=== PATIENT | male | born 1955 | race Caucasian/White ===

== ENCOUNTER 2023-02-15 09:14 | Outpatient (CLI) | payer MEDICARE, BC, SELFPAY ==
[2023-02-15 16:59] LABS: Alanine Aminotransferase 47 U/L (6-50); Albumin Level 4.4 g/dL (3.5-5.1); Alkaline Phosphatase 60 U/L (38-126); Anion Gap 8 mmol/L (8-16); Aspartate Amino Transferase 47 U/L (17-59); Blood Urea Nitrogen 18 mg/dL (9-20); Calcium 9.5 mg/dL (8.4-10.2); Carbon Dioxide 27 mmol/L (22-30); Chloride 106 mmol/L (98-107); Cholesterol 190 mg/dL (0-200); Estimated Glomerular Filt Rate > 60; Glucose 115 mg/dL (65-110); HDL Direct 29 mg/dL; Potassium 4.8 mmol/L (3.4-5.0); Sodium 141 mmol/L (137-145); Triglycerides 163 mg/dL (<150)
[2023-02-15 17:11] LABS: LDL Cholesterol Direct 108 mg/dL
[2023-02-15 17:42] LABS: Prostate Specific Antigen 2.2 ng/mL (< OR = 4.0)
== END 2023-02-15 09:15 | disposition home or self-care (01) ==
PROVIDERS: PCP Emergency Medicine; Visit Provider Emergency Medicine
DX: Z12.5 Encounter for screening for malignant neoplasm of prostate (principal); E78.2 Mixed hyperlipidemia; I10 Essential (primary) hypertension; I25.10 Atherosclerotic heart disease of native coronary artery without angina pectoris; J84.10 Pulmonary fibrosis, unspecified; M33.90 Dermatopolymyositis, unspecified, organ involvement unspecified; M33.91 Dermatopolymyositis, unspecified with respiratory involvement; R73.03 Prediabetes; R94.6 Abnormal results of thyroid function studies
CPT/HCPCS: 36415; 80053; 80061; 83036; 84153; 84443; G0103

== ENCOUNTER 2023-03-28 12:31 | Outpatient (CLI) | payer MEDICARE, BC, SELFPAY ==
--- NOTE | ~2023-03-28 | CT_ITS ---
EXAMINATION:CT diagnostic chest wo con DATE: 03/28/2023 14:48 INDICATION: Dermatopolymyositis. TECHNIQUE: Computed tomography (CT) of the chest was performed without intravenous contrast. Automate d exposure control and iterative reconstruction technique were employed. The dose-length product (DLP ) was 177.90 mGy-cm. COMPARISON: None. FINDINGS: There is moderate emphysema. There is peripheral septal thickening in the lungs with a lowe r lung predominance. There is bronchiectasis in the inferior lungs. There are areas of honeycombing i n the lungs. No pleural effusion. The heart size is normal. There are coronary artery calcifications. No pericardial effusion. There is mild mediastinal lymphadenopathy, likely reactive. There is mild t horacic spondylosis. There is mild chronic anterior wedging of T4-T7 vertebral bodies. IMPRESSION: 1. Diffuse lung disease, likely a combination of moderate emphysema and chronic interstitial lung dis ease in a pattern of usual interstitial pneumonia (UIP). 2. Mild mediastinal lymphadenopathy, likely reactive. Reviewed, dictated and finalized at location E. IMPRESSION: 1. Diffuse lung disease, likely a combination of moderate emphysema and chronic interstitial lung disease in a pattern of usual interstitial pneumonia (UIP). 2. Mild mediastinal lymphadenopathy, likely reactive.
[2023-03-28 13:10] VITALS: PULSE 64; O2SAT 95
[2023-03-28 13:15] VITALS: PULSE 81; O2SAT 86
[2023-03-28 13:18] LABS: Alveolar/Arterial O2 Gradient 37.3 mmHg; Carboxyhemoglobin 0.2 % THb (0-2.0); Fractional Inspired Oxygen 21 %; Methemoglobin ABG 0.3 %THb (0-1.5); Oxygen Content ABG 20.6 %vol (16.0-22.0); Oxygen Saturation ABG 95.6 % (95.0-100.0); PCO2 ABG 31.5 mmHg (35.0-45.0); PO2 ABG 74.7 mmHg (80.0-100.0); PO2 FiO2 Ratio Arterial Blood 3.56 %; Reduced Hemoglobin 5.5 %THb (0-5.0); Total Hemoglobin 15.6 g/dL (12.0-18.0); pH ABG 7.441 (7.350-7.450)
[2023-03-28 13:20] VITALS: PULSE 82; O2SAT 88
[2023-03-28 13:21] LABS: Device ROOM AIR; Modified Allen's Test Pass
[2023-03-28 13:25] VITALS: PULSE 83; O2SAT 91
[2023-03-28 13:40] VITALS: PULSE 66; O2SAT 95
--- NOTE | 2023-03-28 13:51 | HOMEO2EVAL ---
Evaluation was performed at [facility] Home Oxygen Evaluation RC: Home Oxygen (O2) Evaluation Start: 03/28/23 13:48 Freq: Status: Active Protocol: RPE Activity Type Activity Date Activity User E-sign Co-sign Detail Recorded Client Recorded Date Recorded By Document 03/28/23 13:10 [email or web address] [email or web address] 03/28/23 13:51 DJO Document 03/28/23 13:15 [email or web address] [email or web address] 03/28/23 13:51 DJO Document 03/28/23 13:20 [email or web address] [email or web address] 03/28/23 13:51 DJO Document 03/28/23 13:25 [email or web address] [email or web address] 03/28/23 13:51 DJO Document 03/28/23 13:40 [email or web address] [email or web address] 03/28/23 13:51 DJO 03/28/23 03/28/23 03/28/23 13:10 13:15 13:20 Home O2 Evaluation [Oxygen] -Test Phase Resting Exercise Exercise -Oxygen Delivery Room Air Room Air Nasal Cannula -Oxygen Flow Rate (L/min) 1 [Pulse Oximetry] -Pulse Oximetry (90-100 %) 95 86 L 88 L [Pulse Rate] -Pulse Rate (60-100 beats/min) 64 81 82 [Evaluation] -Activity Tolerance [Exercise] -Ambulation Distance (feet) -Ambulation Distance (meters) [Charges] -Treatment Charges O2 Evaluation - Outpatient 03/28/23 03/28/23 13:25 13:40 Home O2 Evaluation [Oxygen] -Test Phase Exercise Resting -Oxygen Delivery Nasal Cannula Room Air -Oxygen Flow Rate (L/min) 2 [Pulse Oximetry] -Pulse Oximetry (90-100 %) 91 95 [Pulse Rate] -Pulse Rate (60-100 beats/min) 83 66 [Evaluation] -Activity Tolerance Good [Exercise] -Ambulation Distance (feet) 1,200 -Ambulation Distance (meters) 365.74 [Charges] -Treatment Charges
--- NOTE | 2023-03-28 16:47 | P.PCNPFT_ITS ---
PFT Procedure Performed PFT Procedure Performed Spirometry with Pre/Post Bronchodilator Plethysmography (Lung Vol) Diffusing Cap (DLCO) Flow Vol Loop PFT Interpretation This is a pulmonary function test with pre and post-bronchodilator spirometry, plethysmography, diffusing capacity, and maximal inspiratory and expiratory pressures. The test was performed and results interpreted in accordance with the 2019 and 2005 ATS/ERS Task Force guidelines respectively using the Global Lung Function Initiative-2012 reference equations. Patient demonstrated good effort and cooperation. Reproducibility criteria were met. The quality of the pre bronchodilator spirometry maneuver was Grade A and post bronchodilator spirometry maneuver was Grade A. Findings: Spirometry: There is decreased maximal expiratory airflow at all lung volumes with concave expiratory flow tracing. The contour the inspiratory flow tracing is normal. The pre bronchodilator FVC is 4.60 L, 111% predicted. The pre bronchodilator FEV1 is 3.00 L, 95% predicted. The pre bronchodilator FEV1: FVC ratio 65%. The post bronchodilator FVC is 4.54 L, representing 1% decrease. The post bronchodilator FEV1 is 3.03 L, representing 1% increase. The post bronchodilator FEV1: FVC ratio 67%. Plethysmography: The total lung capacity is 6.07 L, 89% predicted. The functional residual capacity is 2.92 L, 81% predicted. The residual volume is 1.48 L, 62% predicted. Diffusing capacity: The diffusing capacity unadjusted for hemoglobin and carboxyhemoglobin is 9.1, 35% predicted. The diffusing capacity adjusted for alveolar volume is 1.79, 45% predicted. Respiratory muscle force: The maximal inspiratory pressure is 73 cm H2O, 69% predicted. The maximal expiratory pressure is 127 cm H2O, 64% predicted In comparison to prior pulmonary function testing from 08/16/2021 from [facility] were only pre bronchodilator spirometry was performed, the pre bronchodilator FVC is unchanged from 4.71 to 4.60. The pre bronchodilator FEV1 is unchanged from 3.32 L to 3.00 L. The total lung capacity is unchanged from 6.03 L to 6.07 L. The functional residual capacity is decreased from 3.53 L to 2.92 L. The residual volume is increased from 1.17 L to 1.48 L. The diffusing capacity unadjusted for hemoglobin and carboxyhemoglobin is unchanged from 9.70 to 9.10. The diffusing capacity adjusted for alveolar volume is unchanged from 1.69 to 1.79. Impression: The spirometry is normal without evidence of an obstructive ab normality. There is no significant improvement after inhaling a single dose of albuterol. The total lung capacity and functional residual capacity are normal with a decreased residual volume. This is an abnormal but nonspecific lung volume pattern. The diffusing capacity unadjusted for hemoglobin and carboxyhemoglobin is severely decreased and remains moderately decreased when adjusted for alveolar volume. The maximal inspiratory pressure is normal and the maximal expiratory pressure is below the lower limit of normal which is defined as the 5th percentile of predicted suggesting the presence of expiratory respiratory muscle weakness. Clinical correlation is recommended. In comparison to prior pulmonary function testing on 08/16/2021 there has been a greater than anticipated time dependent decrease in the functional residual capacity and a greater than and to sip aided time dependent increase in the residual volume with no significant change in the FVC, FEV1, total lung capacity or diffusing capacity. Clinical correlation is recommended.
== END 2023-03-28 12:32 | disposition home or self-care (01) ==
LOC: ANHPFT 12:32
PROVIDERS: PCP Emergency Medicine; Visit Provider Internal Medicine Pulmonary Disease
DX: M33.91 Dermatopolymyositis, unspecified with respiratory involvement (principal)
CPT/HCPCS: 36600; 71250; 82375; 82805; 83050; 94060; 94200; 94618; 94726; 94729

== ENCOUNTER 2023-04-04 13:07 | Outpatient (CLI) | payer MEDICARE, BC, SELFPAY ==
[2023-04-04 15:16] LABS: Influenza A QL RT-PCR Negative (Negative); Influenza B QL RT-PCR Negative (Negative); SARS-CoV-2 RNA PCR Negative (Negative)
== END 2023-04-04 13:08 | disposition home or self-care (01) ==
LOC: ANHLAB 13:09
PROVIDERS: PCP Emergency Medicine; Visit Provider Nurse Practitioner Family
DX: R50.9 Fever, unspecified (principal); R05.9 Cough, unspecified; Z20.822 Contact with and (suspected) exposure to COVID-19
CPT/HCPCS: 87636

== ENCOUNTER 2023-05-29 08:11 | Outpatient (CLI) | payer MEDICARE, BC, SELFPAY ==
--- NOTE | 2023-06-23 15:20 | WPDSLEEPSTUD ---
Sleep Study Date of Study: 05/29/23 Ordering Provider: Byron Ash MD Interpreting Physician: Jovita Gtz MD Sleep Study Type: Split Polysomnogram Height: 1.75 m Weight: 76.204 kg Body Mass Index: 24.7 Neck Circumference (inches): 17 [place]: 5 Reason for Sleep Study Nocturnal hypoxemia, overnight oximetry 03/18/2023 on room air patient spent 1 hour 28 minute below 88% saturation. He is on O2 at 2 L/minute with sleep. He has interstitial lung disease with a UIP pattern associated with dermatomyositis with lung involvement. Sleep History Savage Mcgowan is a 67-year-old man with nocturnal hypoxemia currently using oxygen 2 L with sleep. He never awakens from sleep feeling short of breath. He never wakes at night with heartburn, belching or coughing.??He frequently snores, and occasionally snores loudly enough that others complain. He never has trouble sleeping when he has a cold. He never wakes up gasping for breath during the night. He occasionally has breathing problems at night. He never sweats excessively at night. He never notices his heart pounding or beating irregularly during the night. He occasionally falls asleep during the day. He rarely falls asleep involuntarily, rarely falls asleep while driving. He never experiences loss of muscle tone with strong emotion. He never has daytime difficulty at work due to excessive sleepiness. He never feels paralyzed on waking or falling asleep. He never experiences vivid dreams upon waking or falling asleep. He never feels afraid of going to sleep. He never has nightmares. He occasionally recalls his dreams. He never has thoughts racing through his mind. He never feels sad or depressed. He never feels anxiety. He rarely notices parts of his body jerk. He rarely kicks during the night. He never feels crawling or aching feelings in his legs. He never feels leg pain at night. He never has morning jaw pain, never grinds his teeth at night. He never feels bothered by pain during the day, never awakened by pain during the night. He occasionally wakes up feeling stiff in the morning, and he rarely wakes feeling sore or achy. He never awakens with pain in his neck, spine, or joints. Normal bedtime is, falling asleep 10:30 p.m. falling asleep within 15 minutes, waking typically 1 time at night to feed his dogs and place games on his telephone. He stays awaken hour, returns to sleep and wakes at 4:00 a.m.. He keeps the same schedule on weekends. He estimates getting 8-1/2 hours of sleep at night although 10 30 p.m. to 4:00 a.m. is only 5-1/2 hours. He takes naps in the afternoon or evening. A short nap lasting 10-15 minutes may be refreshing. Most of the time he feels adequate on waking. He feels better in the morning compared to other times of day. Habits:??Tobacco: Quit 30 years ago Caffeine: 1 serving per day. Alcohol: none Recreational substances: none [facility] Past Medical History Medical History (Updated 06/23/23 @ 15:48 by Jovita Gtz MD) Barretts esophagus Chronic gastritis Coronary artery disease S/p stent placement 2012 Dermatomyositis affecting respiratory system Hx of colonic polyps Hypertension Mixed hyperlipidemia Family History Family History Father Alcohol abuse Mother Alcohol abuse Hypertension Social History Social History Smoking status: Never smoker Second hand tobacco smoke exposure: No Alcohol intake: never Substance use: never Substance use type: does not use Lack of Transportation: No Lack of Food: Never True Current Housing: I Have Housing Concerned About Future Housing: No Difficulty Paying Gas/Electric Bills: No Difficulty Paying for Meds: No Currently Unemployed: No Education: Master's Degree or Higher Difficulty w/ Childcare or Family Care: No Living arrangements: alone Occupation
[2023-06-23 15:34] VITALS: BMI 24.7
== END 2023-05-30 07:30 | disposition home or self-care (01) ==
PROVIDERS: PCP Emergency Medicine; Visit Provider Internal Medicine Pulmonary Disease
DX: G47.33 Obstructive sleep apnea (adult) (pediatric) (principal); G47.61 Periodic limb movement disorder
CPT/HCPCS: 95811

== ENCOUNTER 2023-07-08 14:04 | Outpatient (CLI) | payer MEDICARE, BC, SELFPAY ==
[2023-07-08 19:46] LABS: Iron 76 ug/dL (49-181)
[2023-07-08 19:59] LABS: Percent Iron Saturation 20 % (20-50)
== END 2023-07-08 14:05 | disposition home or self-care (01) ==
LOC: ANHGOSHLAB 14:06
PROVIDERS: PCP Emergency Medicine; Visit Provider Internal Medicine Pulmonary Disease
DX: K29.50 Unspecified chronic gastritis without bleeding (principal)
CPT/HCPCS: 36415; 82728; 83540; 83550

== ENCOUNTER 2024-03-27 08:15 | Outpatient (CLI) | payer MEDICARE, BC, SELFPAY ==
[2024-03-27 14:24] LABS: Hematocrit 47.3 % (42.0-52.0); Hemoglobin 15.3 g/dL (14.0-18.0); Mean Corpuscular HGB Conc 32.3 g/dl (32-36); Mean Corpuscular Hemoglobin 30.3 pg (26-34); Mean Corpuscular Volume 93.7 fl (80-100); Mean Platelet Volume 11.4 fl (7.4-10.4); Platelet Count Result 254 k/mm3 (150-375); Red Blood Count 5.05 M/mm3 (4.6-6.20); Red Cell Distribution Width 14.2 % (11.5-14.5); White Blood Count 10.3 K/mm3 (4.5-10.0)
[2024-03-27 14:49] LABS: Alanine Aminotransferase 31 U/L (6-50); Albumin Level 4.3 g/dL (3.5-5.1); Alkaline Phosphatase 63 U/L (38-126); Anion Gap 12 mmol/L (4-12); Aspartate Amino Transferase 47 U/L (17-59); Bilirubin,Total 0.6 mg/dL (0.2-1.3); Blood Urea Nitrogen 19 mg/dL (9-20); Calcium 9.4 mg/dL (8.4-10.2); Carbon Dioxide 25 mmol/L (22-30); Chloride 102 mmol/L (98-107); Cholesterol 177 mg/dL (0-200); Estimated Glomerular Filt Rate > 60; Glucose 108 mg/dL (65-110); HDL Direct 37 mg/dL; Magnesium 2.2 mg/dL (1.6-2.3); Potassium 4.4 mmol/L (3.4-5.0); Sodium 139 mmol/L (137-145); Triglycerides 207 mg/dL (<150)
[2024-03-27 15:09] LABS: LDL Cholesterol Direct 100 mg/dL
[2024-03-27 15:28] LABS: Prostate Specific Antigen 2.4 ng/mL (< OR = 4.0)
[2024-03-27 16:04] LABS: Folic Acid 6.3 ng/mL (2.76->20)
[2024-03-27 16:24] LABS: Hemoglobin A1C 6.2 % (<5.7)
== END 2024-03-27 08:16 | disposition home or self-care (01) ==
LOC: ANHGOSHLAB 08:18
PROVIDERS: PCP Nurse Practitioner Family; Visit Provider Nurse Practitioner Family
DX: Z12.5 Encounter for screening for malignant neoplasm of prostate (principal); E61.1 Iron deficiency; E78.2 Mixed hyperlipidemia; G47.33 Obstructive sleep apnea (adult) (pediatric); I10 Essential (primary) hypertension; I25.10 Atherosclerotic heart disease of native coronary artery without angina pectoris; J84.9 Interstitial pulmonary disease, unspecified; K22.70 Barrett's esophagus without dysplasia; K29.50 Unspecified chronic gastritis without bleeding; M33.91 Dermatopolymyositis, unspecified with respiratory involvement; R73.03 Prediabetes; Z79.899 Other long term (current) drug therapy; Z86.0100 Personal history of colon polyps, unspecified; Z76.89 Persons encountering health services in other specified circumstances
CPT/HCPCS: 36415; 80053; 80061; 82607; 82728; 82746; 83036; 83735; 84153; 85027; G0103

== ENCOUNTER 2024-05-04 09:08 | Outpatient (CLI) | payer MEDICARE, BC, SELFPAY | END 2024-05-04 09:09 | disposition home or self-care (01) | PROVIDERS: PCP Nurse Practitioner Family; Visit Provider Nurse Practitioner Family | DX: Z97.4 Presence of external hearing-aid (principal); H90.3 Sensorineural hearing loss, bilateral | CPT/HCPCS: 92557; 92567 ==

== ENCOUNTER 2024-08-31 01:50 | Day surgery (SDC) | payer MEDICARE, BC, SELFPAY ==
[2024-08-17 14:13] VITALS: BMI 23.6
--- OUTSIDE RECORDS SUMMARY | 2024-08-31 01:54 | XMS_ITS | Referral Summary ---
Author Organization [facility] Address [address] [place] [address] Care Team Providers Care Dot Net Developer Name Role Phone Ortiz Aguirre MD Primary Care Provider [phone] Allergies Active Allergy Reactions Criticality Noted Date Comments Niacin Rash Medium 12/01/2012 Elevated LFT, CPK Unnlnht-Amk-Uit Reductase Inhibitors Other (See comments) Low 08/11/2015 Medications ezetimibe (ZETIA) 10 mg tablet Take 1 tablet (10 mg total) by mouth daily 04/15/2020 Active icosapent ethyL (VASCEPA) 1 gram capsule Take 2 capsules (2 g total) by mouth 2 (two) times a day 12/24/2023 Active losartan (COZAAR) 25 mg tablet Take 1 tablet (25 mg total) by mouth daily 12/14/2015 Active metoprolol XL (TOPROL-XL) 50 mg extended release tablet Take by mouth 03/24/[address] (PROTONIX) 40 mg EC tablet Take 1 tablet (40 mg total) by mouth daily Active ashwagandha extract 500 mg capsule Take 1,000 mg by mouth 2 (two) times a day Active magnesium oxide 400 mg magnesium capsule Take by mouth Active multivit-minera j-wrle-hhigzt tablet Take by mouth Active umeclidinium-vi lanteroL (ANORO ELLIPTA) 62.5-25 mcg/actuation blister with device Inhale 1 puff daily 30 each 11 01/23/2024 Active Active Problems Problem Noted Date Diagnosed Date Dermatopolymyositis with respiratory involvement 01/23/2024 Social History Tobacco Use Types Packs/Day Years Used Date Smoking Tobacco: Former Cigarettes Smokeless Tobacco: Never Tobacco Cessation:Counseling Given: Not Answered Sex and Gender Information Value Date Recorded Sex Assigned at Not on file 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 Gender Identity Not on file Sexual Orientation Not on file Last Filed Vital Signs Vital Sign Reading Time Taken Comments Blood Pressure 133/78 01/23/2024 1:11 PM CDT Pulse 64 01/23/2024 1:11 PM CDT Temperature 36.7 C (98.1 F) 01/23/2024 1:11 PM CDT Respiratory Rate 18 01/23/2024 1:11 PM CDT Oxygen Saturation 97% 01/23/2024 1:11 PM CDT Inhaled Oxygen Concentration - - Weight 76.7 kg (169 lb) 01/23/2024 1:11 PM CDT Height 172.7 cm (5' 8 ) 01/23/2024 1:11 PM CDT Body Mass Index 25.7 01/23/2024 1:11 PM CDT Plan of Treatment Not on file Insurance MEDICARE [facility] MEDICARE [facility] Care Teams Dot Net Developer Relationship Specialty Start Date End Date Ortiz Aguirre MD [facility] [place] [address] PCP - General Family Medicine 05/02/23
--- OUTSIDE RECORDS SUMMARY | 2024-08-31 01:54 | XMS_ITS | Encounter Summary ---
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 Gender Identity Not on file Sexual Orientation Not on file documented as of this encounter Plan of Treatment Not on file documented as of this encounter Procedures Procedure Name Priority Date/Time Associated Diagnosis Comments SCAN - RADIOLOGY/IMAGING 09/03/2013 documented in this encounter Results * SCAN - RADIOLOGY/IMAGING (09/03/2013) Anatomical Region Laterality Modality Other us Provider Scanning Final Result documented in this encounter Visit Diagnoses Not on filedocumented in this encounter Care Teams Under Trimmer Relationship Specialty Start Date End Date Ortiz Aguirre MD [address] [facility] [address] [place] [id number] PCP - General Family Medicine 05/02/23 documented as of this encounter
--- OUTSIDE RECORDS SUMMARY | 2024-08-31 01:54 | XMS_ITS | Encounter Summary ---
Author Organization [facility] Address [address] [place] [address] Phone Care Team Providers Care Glass Sander Name Role Phone Ortiz Aguirre MD Primary Care Provider [phone] Encounter Details Date Type Department Care Team (Latest Contact Info) Description 03/28/2023 Orders Only [facility] Scanning, Provider Social History Tobacco Use Types Packs/Day Years Used Date Smoking Tobacco: Never Assessed Sex and Gender Information Value Date Recorded Sex Assigned at Not on file Legal Sex Male 2:35 PM [place] Gender Identity Not on file Sexual Orientation Not on file documented as of this encounter Plan of Treatment Not on file documented as of this encounter Procedures Procedure Name Priority Date/Time Associated Diagnosis Comments PULMONARY - RESULT SCAN 03/28/2023 SCAN - RADIOLOGY/IMAGING 03/28/2023 documented in this encounter Results * PULMONARY - RESULT SCAN (03/28/2023) Anatomical Region Laterality Modality Other us Provider Scanning Final Result * SCAN - RADIOLOGY/IMAGING (03/28/2023) Anatomical Region Laterality Modality Other us Provider Scanning Edited Result - Final documented in this encounter Visit Diagnoses Not on filedocumented in this encounter Care Teams Glass Sander Relationship Specialty Start Date End Date Ortiz Aguirre MD [facility] [address] [place] [id number] PCP - General Family Medicine 05/02/23 documented as of this encounter
--- OUTSIDE RECORDS SUMMARY | 2024-08-31 01:54 | XMS_ITS | Clinical Summary ---
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 Gender Identity Not on file Sexual Orientation Not on file Obstetrics History Last Filed Vital Signs Vital Sign Reading [...] 01/23/2024 1:11 PM CDT Plan of Treatment Health Maintenance Due Date Last Done Comments Colon Cancer Screening-Colonoscopy 1955 Depression Screening 1955 Fall Risk Assessment 1955 Hepatitis C Screening 1955 Hepatitis B Screening 11/15/1971 Abdominal Aortic Aneurysm (A AA) Screen 2018 Well Visit 65+ 2018 Influenza Vaccine (#1) 2024 , 04/10/2022, 02/22/2021, Additional history exists DTaP/Tdap/Td Vaccine (2 - Td or Tdap) 08/10/2031 08/09/2021, 03/25/2002 Pneumococcal vaccine 65+ Completed 021, 04/22/2017, 03/03/2013, Additional history exists Zoster Vaccine Completed 10/11/2021, 07/25, 03/03/2013 [place] Care Teams Nutrition Associate Relationship Specialty Start Date End Date Ortiz Aguirre MD [address] [place] [address] [address] [place] [id number] PCP - General Family Medicine 05/02/23
--- OUTSIDE RECORDS SUMMARY | 2024-08-31 01:54 | XMS_ITS | Patient Health Record ---
Author Organization [facility]. Address [address] [address] Care Team Providers Care Real Estate Site Analyst Name Role Phone Mandi ASHRAF, [facility] Primary Care Provider Unavail able SALOME LEON Unavailable [phone] Tyler Adamson DO Unavailable Unavailable Reason For Referral No Information Plan Of Treatment No Information Insurance Providers Payer Name Payer Address Payer Phone Subscriber Number Group Number Insured Name Patient Relationship to Insured Coverage Start Date Coverage End Date [employer] DO NOT USE ADV [facility] [address] [place] [id number] NATALIE CHEEMA Self - patient is the insured
[2024-08-31 10:55] VITALS: BP 122/76; PULSE 104; RESP 20; TEMP 36.4; O2SAT 98; BMI 24.3
[2024-08-31] MEDS: LACTATED RINGERS 1,000 ML 150 ML IV CONT (11:18)
--- NOTE | 2024-08-31 11:56 | P.PNAN_ITS ---
Anes - Initial Pre Proc Eval Procedure: Operation Date: 08/31/24 12:30 Proposed Procedures p Esophagogastroduodenoscopy & Colonoscopy - Dionicio White MD Date/Time: 08/31/24 11:56 Surgeon: Dionicio White MD Pre Op Diagnosis: Person hx of colon polyps, sim's esophagus Patient Data Age: 68 Gender: M Height: 1.75 m Weight: 74.8 kg Last Vital Signs Temp 97.5 F L 08/31/24 10:55 Pulse 104 H 08/31/24 10:55 Resp 20 08/31/24 10:55 BP 122/76 08/31/24 10:55 Pulse Ox 98 08/31/24 10:55 O2 Del Method Room Air 08/31/24 10:55 Allergies Allergy/AdvReac Type Severity Reaction Status Date / Time niacin Allergy Intermediate Anaphylaxis Verified 08/31/24 11:01 Qlmqoxo-HLD-UdS Reductase Allergy Intermediate Anaphylaxis Verified 08/31/24 11:01 Inhibitor Home Medications ?Medication ?Instructions ?Recorded ?Confirmed ?Type aspirin 81 mg tablet,delayed 81 mg PO DAILY 01/24/23 08/31/24 History release (Adult Aspirin Regimen) cpap #1 ea 06/28/23 04/29/24 Rx pantoprazole 40 mg tablet,delayed 40 mg PO DAILY #90 tabs 02/13/24 08/31/24 Rx release icosapent ethyl 1 gram capsule 2 g (2 x 1 gram) PO BID 3 months 03/13/24 08/31/24 Rx (Vascepa) #360 caps losartan 25 mg tablet 25 mg PO DAILY #90 tabs 05/06/24 08/31/24 Rx metoprolol succinate 50 mg 50 mg PO DAILY #90 tabs 05/06/24 08/31/24 Rx tablet,extended release 24 hr umeclidinium 62.5 mcg-vilanterol 1 inh inhalation Q24H 08/17/24 08/31/24 History 25 mcg/actuation powdr for inhalation (Anoro Ellipta) Patient hx anesthesia problems: none Family hx anesthesia problems: none Results Review: All pre-operative results and documents have been reviewed as part of the pre- operative evaluation. [facility] Past Medical History Medical History Arch pain Barretts esophagus Chronic gastritis Coronary artery disease S/p stent placement 2013 Dermatomyositis Dermatomyositis affecting respiratory system Esophagitis Hx of colonic polyps Hypertension Mixed hyperlipidemia PLMD (periodic limb movement disorder) Pulmonary fibrosis Stiffness of right wrist joint Family History Family History (Reviewed 04/21/24 @ 09:09 by Bell Duffy [facility]) Father Alcohol abuse Mother Alcohol abuse Hypertension Social History Social History Smoking packs per day: 2.5 Smoking cigarettes per day: 50.0 Years smoked: 15 Smoking pack-years: 37.50 Smoking status: Former smoker Tobacco type: cigarettes Second hand tobacco smoke exposure: No Alcohol intake: never Substance use: never Substance use type: does not use Lack of Transportation: No Lack of Food: Never True Current Housing: I Have Housing Concerned About Future Housing: No Difficulty Paying Gas/Electric Bills: No Difficulty Paying for Meds: No Currently Unemployed: No Education: Master's Degree or Higher Difficulty w/ Childcare or Family Care: No Living arrangements: alone Occupation/Education: retired Gender identity (if verbalized by the patient): Male Spiritual care concerns: No Agree to blood products: Yes Anes - Eval Final PreProcedure Day of Procedure 08/31/24 11:56 Patient weight: normal Heart: regular rate and rhythm Lungs: clear to auscultation Airway: Mallampati scale class II Neurological: alert and oriented Last oral intake: >/= 8 hours ASA classification: III Emergent: no Anesthetic plan: proceed Anesthesia type and monitoring: general GIVS and standard monitoring Results Review: All pre-operative results and documents have been reviewed as part of the pre- operative evaluation. Informed Consent: The patient's anesthetic plan and its attendant risks and benefits were discussed with the patient/family/POA. Questions were solicited and answers provided to the satisfaction of the patient/family/POA.
--- NOTE | 2024-08-31 12:28 | PM.HPGS ---
History of Present Illness History of Present Illness Consent: Risks, benefits, and alternatives have been discussed and questions answered. Patient agrees to proceed with procedure. Chief complaint: Person hx of colon polyps, sim's esophagus Narrative: Savage Mcgowan is a 68 year old male with sim's, last egd 2021, using ppi. Last colonoscopy 2019 with polyp Review of Systems Review of Systems: All systems reviewed & are unremarkable except as noted in HPI and below PMFSH Past Medical History Medical History Arch pain Barretts esophagus Chronic gastritis Coronary artery disease S/p stent placement 2012 Dermatomyositis Dermatomyositis affecting respiratory system Esophagitis Hx of colonic polyps Hypertension Mixed hyperlipidemia PLMD (periodic limb movement disorder) Pulmonary fibrosis Stiffness of right wrist joint Family History Family History Father Alcohol abuse Mother Alcohol abuse Hypertension Social History Social History Smoking packs per day: 2.5 Smoking cigarettes per day: 50.0 Years smoked: 15 Smoking pack-years: 37.50 Smoking status: Former smoker Tobacco type: cigarettes Second hand tobacco smoke exposure: No Alcohol intake: never Substance use: never Substance use type: does not use Lack of Transportation: No Lack of Food: Never True Current Housing: I Have Housing Concerned About Future Housing: No Difficulty Paying Gas/Electric Bills: No Difficulty Paying for Meds: No Currently Unemployed: No Education: Master's Degree or Higher Difficulty w/ Childcare or Family Care: No Living arrangements: alone Occupation/Education: retired Gender identity (if verbalized by the patient): Male Spiritual care concerns: No Agree to blood products: Yes Meds Home Medications and Allergies Home Medications ?Medication ?Instructions ?Recorded ?Confirmed ?Type aspirin 81 mg tablet,delayed 81 mg PO DAILY 01/24/23 08/31/24 History release (Adult Aspirin Regimen) cpap #1 ea 06/28/23 04/29/24 Rx pantoprazole 40 mg tablet,delayed 40 mg PO DAILY #90 tabs 02/13/24 08/31/24 Rx release icosapent ethyl 1 gram capsule 2 g (2 x 1 gram) PO BID 3 months 03/13/24 08/31/24 Rx (Vascepa) #360 caps losartan 25 mg tablet 25 mg PO DAILY #90 tabs 05/06/24 08/31/24 Rx metoprolol succinate 50 mg 50 mg PO DAILY #90 tabs 05/06/24 08/31/24 Rx tablet,extended release 24 hr umeclidinium 62.5 mcg-vilanterol 1 inh inhalation Q24H 08/17/24 08/31/24 History 25 mcg/actuation powdr for inhalation (Anoro Ellipta) Allergies Allergy/AdvReac Type Severity Reaction Status Date / Time niacin Allergy Intermediate Anaphylaxis Verified 08/31/24 11:01 Eopxxaa-RCZ-SdY Reductase Allergy Intermediate Anaphylaxis Verified 08/31/24 11:01 Inhibitor Vital Signs Vital Signs - 24 hr 08/31/24 10:55 Temperature 97.5 F L Pulse Rate 104 H Respiratory Rate 20 Blood Pressure 122/76 Pulse Oximetry 98 Oxygen Delivery Room Air Exam Const: General: comfortable and no acute distress HENMT: Face/Nose/Sinus: Normal nares present Eyes: General: appearance normal, both eyes and all related structures Neck: Neck: no JVD Resp: Auscultation: clear to auscultation bilaterally Cardio: Rate: regular rate Rhythm: regular rhythm GI: Inspection: non-distended GI Palp: Yes Soft to palpation Skin: General skin exam: normal color Neuro: Speech: normal speech Extrem: General: normal to inspection Psych: Mental Status: mental status grossly normal Assessment and Plan Assessment and plan (1) Barretts esophagus: Qualifiers: Sim's esophagus type: without dysplasia Qualified Code(s): K22.70 - Sim's esophagus without dysplasia Code(s): K22.70 - Sim's esophagus without dysplasia Status: Acute Assessment and Plan: egd (2) Hx of colonic polyps: Code(s): Z86.010 - Personal history of colon polyps Status: Acute Assessment and Plan: colonoscopy
--- NOTE | 2024-08-31 12:44 | SUR.OPER ---
EGD: start 1235, end 1238 Colonoscopy: start 1241, end 1248
[2024-08-31 12:50] VITALS: BP 88/55; PULSE 89; RESP 18; O2SAT 96
[2024-08-31 13:00] VITALS: BP 102/62; PULSE 92; RESP 23; O2SAT 100
[2024-08-31 13:10] VITALS: BP 120/73; PULSE 83; RESP 23; O2SAT 98
== END 2024-08-31 13:21 | disposition home or self-care (01) ==
PROVIDERS: PCP Nurse Practitioner Family; Referring Provider Nurse Practitioner; Visit Provider Internal Medicine Gastroenterology
PROC: 0DJ08ZZ Inspection of Upper Intestinal Tract, Via Natural or Artificial Opening Endoscopic (ICD-10-PCS; CPT 45378; principal; 2024-08-31 12:30)
DX: Z12.11 Encounter for screening for malignant neoplasm of colon (principal); Z86.0100 Personal history of colon polyps, unspecified; K64.8 Other hemorrhoids; K57.30 Diverticulosis of large intestine without perforation or abscess without bleeding; K22.70 Barrett's esophagus without dysplasia; I25.10 Atherosclerotic heart disease of native coronary artery without angina pectoris; I10 Essential (primary) hypertension; E78.2 Mixed hyperlipidemia; Z87.891 Personal history of nicotine dependence; Z79.82 Long term (current) use of aspirin
CPT/HCPCS: 43239; G0105; 88305; J2704; J7120

== ENCOUNTER 2024-11-10 08:42 | Outpatient (CLI) | payer MEDICARE, BC, SELFPAY ==
--- OUTSIDE RECORDS SUMMARY | 2024-11-10 09:00 | XMS_ITS | Clinical Summary ---
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 Gender Identity Not on file Sexual Orientation [...] 1:11 PM CDT Height 172.7 cm (5' 8) 01/23/2024 1:11 PM CDT Body Mass Index 25.7 01/23/2024 1:11 PM CDT Plan of Treatment Health Maintenance Due Date Last Done Comments Colon Cancer Screening-Colonoscopy 1955 Depression Screening 1955 Fall Risk Assessment 1955 Hepatitis C Screening 1955 Hepatitis B Screening 11/15/1971 Abdominal Aortic Aneurysm (A AA) Screen 2018 Well Visit 65+ 2018 Influenza Vaccine (Season Ended) 2025 02/27/2023, 04/10/2022, 02/22/2021, Additional history exists DTaP/Tdap/Td Vaccine (2 - Td or Tdap) 08/10/2031 08/09/2021, 03/25/2002 Pneumococcal vaccine 65+ Completed 021, 04/22/2017, 03/03/2013, Additional history exists Zoster Vaccine Completed 10/11/2021, 07/25, 03/03/2013 Insurance MEDICARE [employer] [place] [employer] [place] Care Teams Pipe [address] Service Relationship Specialty Start Date End Date Ortiz Aguirre MD [address] [place] [address] [address] [place] [id number] PCP - General Family Medicine 05/02/23
--- OUTSIDE RECORDS SUMMARY | 2024-11-10 09:00 | XMS_ITS | Referral Summary ---
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
--- OUTSIDE RECORDS SUMMARY | 2024-11-10 09:01 | XMS_ITS | Encounter Summary ---
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
--- OUTSIDE RECORDS SUMMARY | 2024-11-10 09:01 | XMS_ITS | Patient Health Record ---
Author Organization [facility]. Address [address] [address] Care Team Providers Care Property Supervisor Name Role Phone Mandi ASHRAF, [facility] Primary Care Provider Unavail able SALOME LEON Unavailable [phone] Tyler Adamson DO Unavailable Unavailable Reason For Referral No Information Plan Of Treatment No Information Insurance Providers Payer Name Payer Address Payer Phone Subscriber Number Group Number Insured Name Patient Relationship to Insured Coverage Start Date Coverage End Date [employer] DO NOT USE [facility] [address] [place] [id number] [phone] [id number] NATALIE CHEEMA Self - patient is the insured
--- OUTSIDE RECORDS SUMMARY | 2024-11-10 09:01 | XMS_ITS | Encounter Summary ---
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
[2024-11-10 19:21] LABS: Hematocrit 47.4 % (42.0-52.0); Hemoglobin 15.5 g/dL (14.0-18.0); Mean Corpuscular HGB Conc 32.7 g/dl (32-36); Mean Corpuscular Hemoglobin 30.3 pg (26-34); Mean Corpuscular Volume 92.6 fl (80-100); Mean Platelet Volume 11.7 fl (7.4-10.4); Platelet Count Result 400 k/mm3 (150-375); Red Blood Count 5.12 M/mm3 (4.6-6.20); Red Cell Distribution Width 14.4 % (11.5-14.5)
[2024-11-10 19:46] LABS: Iron 97 ug/dL (49-181)
[2024-11-10 19:56] LABS: Percent Iron Saturation 23 % (20-50)
[2024-11-10 19:57] LABS: Hemoglobin A1C 6.2 % (<5.7)
[2024-11-10 20:12] LABS: Alanine Aminotransferase 45 U/L (6-50); Albumin Level 4.4 g/dL (3.5-5.1); Alkaline Phosphatase 53 U/L (38-126); Anion Gap 10 mmol/L (4-12); Aspartate Amino Transferase 39 U/L (17-59); Bilirubin,Total 0.5 mg/dL (0.2-1.3); Blood Urea Nitrogen 21 mg/dL (9-20); Calcium 9.7 mg/dL (8.4-10.2); Carbon Dioxide 25 mmol/L (22-30); Chloride 106 mmol/L (98-107); Cholesterol 194 mg/dL (0-200); Estimated Glomerular Filt Rate > 60; Glucose 118 mg/dL (65-110); HDL Direct 31 mg/dL; Magnesium 2.4 mg/dL (1.6-2.3); Potassium 4.6 mmol/L (3.4-5.0); Sodium 141 mmol/L (137-145); Total Protein 7.9 g/dL (6.3-8.2); Triglycerides 190 mg/dL (<150)
[2024-11-10 20:23] LABS: LDL Cholesterol Direct 113 mg/dL
[2024-11-10 21:16] LABS: Folic Acid 10.6 ng/mL (2.76->20)
== END 2024-11-10 08:43 | disposition home or self-care (01) ==
LOC: ANHGOSHLAB 08:43
PROVIDERS: PCP Nurse Practitioner Family; Visit Provider Nurse Practitioner Family
DX: E61.1 Iron deficiency (principal); I10 Essential (primary) hypertension; I25.10 Atherosclerotic heart disease of native coronary artery without angina pectoris; E78.2 Mixed hyperlipidemia; R73.03 Prediabetes; H91.93 Unspecified hearing loss, bilateral; K22.70 Barrett's esophagus without dysplasia; K29.50 Unspecified chronic gastritis without bleeding; M33.91 Dermatopolymyositis, unspecified with respiratory involvement; J84.9 Interstitial pulmonary disease, unspecified; G47.33 Obstructive sleep apnea (adult) (pediatric); Z79.899 Other long term (current) drug therapy
CPT/HCPCS: 36415; 80053; 80061; 82607; 82728; 82746; 83036; 83540; 83550; 83735; 85027

== ENCOUNTER 2025-05-03 09:11 | Outpatient (CLI) | payer MEDICARE, SELFPAY ==
[2025-05-03 18:52] LABS: Hematocrit 49.6 % (42.0-52.0); Hemoglobin 16.1 g/dL (14.0-18.0); Mean Corpuscular HGB Conc 32.5 g/dl (32-36); Mean Corpuscular Hemoglobin 30.2 pg (26-34); Mean Corpuscular Volume 93.1 fl (80-100); Platelet Count Result 308 k/mm3 (150-375); Red Blood Count 5.33 M/mm3 (4.6-6.20); White Blood Count 13.1 K/mm3 (4.5-10.0)
[2025-05-03 18:56] LABS: Hemoglobin A1C 6.2 % (<5.7)
[2025-05-03 19:06] LABS: Alanine Aminotransferase 52 U/L (6-50); Albumin Level 4.6 g/dL (3.5-5.1); Alkaline Phosphatase 85 U/L (38-126); Anion Gap 10 mmol/L (4-12); Aspartate Amino Transferase 61 U/L (17-59); Bilirubin,Total 0.9 mg/dL (0.2-1.3); Blood Urea Nitrogen 21 mg/dL (9-20); Calcium 9.8 mg/dL (8.4-10.2); Carbon Dioxide 24 mmol/L (22-30); Chloride 106 mmol/L (98-107); Cholesterol 191 mg/dL (0-200); Estimated Glomerular Filt Rate 55; Glucose 83 mg/dL (65-110); HDL Direct 32 mg/dL; Magnesium 2.3 mg/dL (1.6-2.3); Potassium 4.6 mmol/L (3.4-5.0); Sodium 140 mmol/L (137-145); Total Protein 8.4 g/dL (6.3-8.2); Triglycerides 140 mg/dL (<150)
[2025-05-03 19:21] LABS: Iron 146 ug/dL (49-181)
[2025-05-03 19:34] LABS: Percent Iron Saturation 35 % (20-50)
[2025-05-03 20:03] LABS: Ferritin 26.20 ng/mL (11.1-264)
[2025-05-03 20:22] LABS: Vitamin B12 673.0 pg/mL (239-931)
== END 2025-05-03 09:12 | disposition home or self-care (01) ==
LOC: ANHGOSHLAB 09:12
PROVIDERS: PCP Nurse Practitioner Family; Visit Provider Nurse Practitioner Family
DX: Z79.899 Other long term (current) drug therapy (principal); I10 Essential (primary) hypertension; I25.10 Atherosclerotic heart disease of native coronary artery without angina pectoris; E78.2 Mixed hyperlipidemia; R73.03 Prediabetes; H91.93 Unspecified hearing loss, bilateral; K22.70 Barrett's esophagus without dysplasia; K29.50 Unspecified chronic gastritis without bleeding; K57.30 Diverticulosis of large intestine without perforation or abscess without bleeding; K64.8 Other hemorrhoids; E61.1 Iron deficiency; M33.91 Dermatopolymyositis, unspecified with respiratory involvement; J84.9 Interstitial pulmonary disease, unspecified; G47.33 Obstructive sleep apnea (adult) (pediatric); L21.9 Seborrheic dermatitis, unspecified; Z86.0100 Personal history of colon polyps, unspecified
CPT/HCPCS: 36415; 80053; 80061; 82607; 82728; 82746; 83036; 83540; 83550; 83735; 85027

== ENCOUNTER 2025-05-03 09:41 | Outpatient (CLI) | payer MEDICARE, SELFPAY ==
--- NOTE | ~2025-05-03 | US_ITS ---
EXAMINATION: US aorta [employer] [facility] DATE: 05/03/2025 10:08 INDICATION: Abdominal aortic aneurysm screening with risk factors of hypertension and prior smoking TECHNIQUE: Grayscale, color Doppler, and pulsed Doppler images of the aorta and common iliac arteries were obtained. COMPARISON: None. FINDINGS: The proximal aorta measures 2.1 cm. 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 There is full and opposite directions within the aneurysm by thin echogenic curvilinear likely dissection flap. The distal aorta tapers to 1.3 cm diameter.. The right common iliac artery measures 1.1 cm. The left common iliac artery measures 1.4 cm. IMPRESSION: 1. 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 Consider vascular surgery consultation and contrast-enhanced CT angiogram to better delineate the extent of the dissection flap in any involvement of the renal or mesenteric arteries arising from the aorta. Reviewed, dictated and finalized at location A. NESS ANALYSIS CONSULTANT IMPRESSION: 1. 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 Consider vascular surgery consultation and contrast-enhanc ed CT angiogram to better delineate the extent of the dissection flap in any in volvement of the renal or mesenteric arteries arising from the aorta.
== END 2025-05-03 09:42 | disposition home or self-care (01) ==
LOC: MICIMG 09:42
PROVIDERS: PCP Nurse Practitioner Family; Visit Provider Nurse Practitioner Family
DX: Z13.6 Encounter for screening for cardiovascular disorders (principal); Z87.891 Personal history of nicotine dependence
CPT/HCPCS: 76706